=== PATIENT | male | born 1990 ===

== ENCOUNTER 2023-09-07 11:23 | Emergency (ER) | payer BC, OTHER ==
[2023-09-07] MEDS ORDERED: Diphtheria,Pertussis(Acell),Tetanus Vaccine 0.5 ML Syringe IM ONE (11:43)
[2023-09-07] MEDS ORDERED: Lidocaine 1% 20 ML MDV INJECT ONE (11:48)
[2023-09-07] MEDS ORDERED: Cephalexin 500 MG Cap PO ONE (11:50)
== END 2023-09-07 14:21 | disposition home or self-care (01) ==
LOC: JD.ED 11:23
DX: S81.811A Laceration without foreign body, right lower leg, initial encounter (principal); Z23 Encounter for immunization; W23.1XXA Caught, crushed, jammed, or pinched between stationary objects, initial encounter; Y99.0 Civilian activity done for income or pay
CPT/HCPCS: 12006; 73590; 90471; 90715; 99283; A9270; J3490